=== PATIENT | female | born 1995 | race Caucasian/White ===

== ENCOUNTER 2022-04-06 10:45 | Emergency (ER) | payer OTHER, SELFPAY ==
[2022-04-06 11:00] VITALS: BP 141/87; PULSE 92; RESP 18; TEMP 36.6; O2SAT 100
--- NOTE | 2022-04-06 11:28 | ED.FEMALEGU ---
HPI - Female Genitourinary General Chief complaint: Urogenital-Female Stated complaint: Possible UTI Time Seen by Provider: 04/06/22 11:10 Source: patient Mode of arrival: ambulatory Limitations: no limitations History of Present Illness HPI Narrative: Ms. Echevarria is a 26-year-old female patient presenting to clinic today with complaints of possible urinary tract infection. She reports that her symptoms began on Wednesday. States that she is having some lower right-sided back pain with frequency and urgency of the urine. She denies any dysuria. She denies any fever or chills. She denies any abdominal pain or vaginal discharge. Related Data Home Medications Medication Instructions Recorded Confirmed levonorgestrel-ethinyl estradiol 1 tablet PO DAILY 04/06/22 04/06/22 0.1 mg-20 mcg tablet (Vienva) Allergies Allergy/AdvReac Type Severity Reaction Status Date / Time No Known Allergies Allergy Verified 04/06/22 11:15 Review of Systems Review of Systems: Pertinent positives per HPI. Patient denies any fever, chills, rash, headache, visual changes, dizziness, cough, runny nose, sore throat, shortness of breath, chest pain, palpitations, nausea, vomiting, diarrhea, constipation, abdominal pain. [facility] Surgical History Surgical History H/O LEEP 2019 History of colposcopy 12/2018 Hgsil KULWANT 2 2018 ecc lgsil Social History Social History (Updated 09/17/21 @ 16:00 by Jen Tapia MA) Smoking status: Never smoker Second hand tobacco smoke exposure: No Alcohol intake: current Alcohol use details: socially Substance use: never Substance use type: does not use Additional occupation/education comments: Teacher Gender identity (if verbalized by the patient): Female Sexual Orientation (if Verbalized by the Patient): Straight or Heterosexual Comments At the time of my signature, I reviewed and agree with the nursing past medical, surgical, social, and family history. There is no relevant family history pertinent to the patient complaint. Exam Narrative: General: Well-developed, well nourished, in no apparent distress Head: Normocephalic, atraumatic. Cardio: Regular rate and rhythm, s1 and s2 normal, no murmur appreciated. Resp: Clear to auscultation bilaterally, no rhonchi, rales, wheezing or rubs. Abdomen: Soft, pliable, nontender to palpation, bowel sounds present all 4 quadrants, no organomegaly, no CVAT tenderness Musculoskeletal: No deformity, non-tender to palpation, pain with bending forward to the right lower back, patellar reflexes 2+, negative foot drop, grossly normal range of motion, bilateral lower extremity muscle strength strong and equal, peripheral pulse strong, no edema, no cyanosis, normal gait and station Course Course Emergency Course: Portions of this record may have been created with voice recognition software. Level of Care: Express Care Visit Vital Signs Vital signs: Vital Signs Temperature 36.6 C 04/06/22 11:00 Pulse Rate 92 04/06/22 11:00 Respiratory Rate 18 04/06/22 11:00 Blood Pressure 141/87 H 04/06/22 11:00 Pulse Oximetry 100 04/06/22 11:00 Oxygen Delivery Room Air 04/06/22 11:00 Temperature 36.6 C 04/06/22 11:00 Pulse Rate 92 04/06/22 11:00 Respiratory Rate 18 04/06/22 11:00 Blood Pressure 141/87 H 04/06/22 11:00 Pulse Oximetry 100 04/06/22 11:00 Oxygen Delivery Room Air 04/06/22 11:00 Vital signs reviewed MDM - Female Genitourinary MDM Narrative Medical decision making narrative: At the time of visit patient is resting comfortably on the exam table. Urinalysis was completed and shows a trace of leukocytes. This may be due to contamination. Patient is having right-sided low back pain with movement - this may be more likely musculoskeletal. Prescription for naproxen was sent to the pharmacy and offered muscle relaxers however patient declined for muscle
== END 2022-04-06 11:39 | disposition home or self-care (01) ==
PROVIDERS: Emergency Provider Nurse Practitioner Family; PCP Physician Assistant Medical
DX: M54.50 Low back pain, unspecified (principal); R35.0 Frequency of micturition; R39.15 Urgency of urination
CPT/HCPCS: 81003; 87086; 99213; G0463